=== PATIENT | female | born 1975 | race Two or more races ===

== ENCOUNTER 2020-02-07 10:10 | Outpatient (CLI) | payer BC | END 2020-02-07 23:59 | disposition home or self-care (01) | LOC: LAB 10:10 | PROVIDERS: ATTEND Obstetrics & Gynecology | DX: Z01.812 Encounter for preprocedural laboratory examination (principal); Z11.59 Encounter for screening for other viral diseases ==

== ENCOUNTER 2020-02-11 05:59 | Inpatient (IN) | payer BC ==
[~2020-02-11] VITALS: Ht 160 cm; Wt 84.4 kg
[2020-02-11] VITALS (11 sets, daily range): BP systolic 112–155; BP diastolic 64–81
--- NOTE | 2020-02-11 06:45 | NUR ---
PT ARRIVED TO UNIT FROM HOME FOR TOTAL ABDOMINAL HYSTERECTOMY. PT IS A/OX4. ON ROOM AIR, BREATHING EVEN AND UNLABORED. DENIES SOB, IN NO ACUTE DISTRESS. BELONGINGS LIST COMPLETED AND FILED IN THE CHART. BELONGINGS LEFT IN DRAWER AT BEDSIDE. CONSENTS SIGNED AND FILED IN THE CHART. ORIENTED PT TO ROOM AND CALL LIGHT. IV STARTED TO LAC #20.
[2020-02-11] MEDS ORDERED: ANESTHESIA TRAY IN PYXIS 1 EA TRAY MC ONE (07:02)
--- NOTE | 2020-02-11 07:06 | NUR ---
PT NOTED LEFT BREAST PAIN SINCE YESTERDAY. FEELS WARM AND TENDER TO TOUCH. SURGICAL TEAM TO NOTIFY MD. PT WENT DOWN FOR SURGERY WITH STAFF.
[2020-02-11 07:16] LABS: HEMOGLOBIN 11.3 g/dL (11.5-14.8)
[2020-02-11] MEDS ORDERED: MIDAZOLAM HCL 2 MG/2ML VIAL ONE (07:27)
[2020-02-11] MEDS ORDERED: FENTANYL PF 250MCG/5ML AMPUL ONE (07:27)
[2020-02-11] MEDS ORDERED: ROCURONIUM BROMIDE 50 MG/5 ML ONE (07:28)
--- NOTE | 2020-02-11 07:30 | NUR ---
MS/RN NOTES RECEIVED REPORT FROM [facility] NURSE. PT CURRENTLY AT OR.
[2020-02-11] MEDS ORDERED: CELLULOSE,OXIDIZED 1 EA PACK MC ONE (08:51)
[2020-02-11] MEDS ORDERED: BUPIVACAINE 0.25% 75 MG/30 ML VIAL ONE (08:51)
[2020-02-11] MEDS ORDERED: HYDROMORPHONE INJ 2 MG/ML DISP.SYRIN ONE (09:34)
--- NOTE | 2020-02-11 10:30 | NUR ---
MS/RN ADMITTING NOTES Received patient in bed from OR for total abdominal hysterectomy and right ovarian cystectomy lysis of adhesion, A&O x 4. No complaints of pain/discomfort at this time, last pain medication noted at 0945. Breathing even and non-labored on 2L oxygen via NC. No respiratory or cardiac distress noted. IV access noted on L AC #18, patent and intact, and flushing well. Patient complains of L breast pain, mass felt upon palpation and warm to touch. Dr. Meza ordered consultation with Dr. Micah Seaman, notified Dr. Seaman already. Photo taken of abdominal dressing, which is clean, dry, and intact. Sensation from all peripheral extremities intact. Botello in place, draining yellow urine well. Sensation from all peripheral extremities intact. Fall precautions maintained. Post-op orders carried out. Will continue to monitor patient for any changes in condition.
[2020-02-11] MEDS ORDERED: ONDANSETRON HCL/PF 4 MG/2 ML VIAL IV PRN (11:00)
--- NOTE | 2020-02-11 11:00 | NUR ---
MS/RN NOTES Patient refuses supplemental oxygen, says "it bothers me." Saturating well on room air, 100%.
--- NOTE | 2020-02-11 12:00 | NUR ---
MS/RN NOTES CALLED MED RECON NURSE TO FOLLOW UP MED RECON, STATES "I'LL BE RIGHT THERE TO DO IT."
[2020-02-11] MEDS: MORPHINE SULFATE INJ 4 MG/ML DISP.SYRIN IV PRN ×3 (12:42→20:48)
--- NOTE | 2020-02-11 12:42 | NUR ---
MS/RN NOTES Administered and scanned Morphine 5 mg via IVP, but it didn't register because pharmacy edited order. Waste was witnessed by RENNY Peralta. Will continue to monitor patient for any changes in condition.
--- NOTE | 2020-02-11 12:52 | NUR ---
MS/RN NOTES Per pharmacy, cefazolin and cefotetan cannot be administered together since it's both cephalosporins. Called Dr. Meza for clarification of order and states "keep ancef, but change it to 1gm to 2 grams IVPB q 12 hrs x 2 doses". Order carried out and notified pharmacy.
[2020-02-11] MEDS ORDERED: MORPHINE SULFATE INJ 4 MG/ML DISP.SYRIN IV PRN (13:00)
[2020-02-11] MEDS: IV D5 LR 1,000 ML IV PRN (13:47)
[2020-02-11] MEDS: CEFAZOLIN 2 GM in IV D5W 100 ML IV SCH ×2 (14:52→22:05)
[2020-02-11] MEDS ORDERED: ANCEF 1 GM/50 ML D5W IV SCH ×2 (15:00)
--- NOTE | 2020-02-11 18:58 | NUR ---
MS/RN CLOSING NOTES Patient resting in bed, A&O x 4. No complaints of pain/discomfort at this time, last pain medication noted at 1638. Breathing even and non-labored on RA. No respiratory or cardiac distress noted. IV access noted on L AC #18, patent and intact, and running D5LR @125 cc/hr. Abdominal dressing stayed clean, dry, and intact. Sensation from all peripheral extremities intact. Botello in place, draining yellow urine well. Sensation from all peripheral extremities intact. Fall precautions maintained. Will endorse to plant operator nurse.
[2020-02-11 19:25] LABS: HEMOGLOBIN 9.9 g/dL (11.5-14.8)
--- NOTE | 2020-02-11 19:50 | NUR ---
MS RN OPENING NOTES PATIENT RECEIVED RESTING IN BED COMFORTABLY; PATIENT A/OX2-3; BREATHING EVEN AND UNLABORED; NO SOB NOTED; TOLERATING ROOM AIR WELL; PER AM SHIFT, PATIENT COMPLAINING OF LEFT BREAST PAIN; DR. KENNEDY ASSESSED PATIENT AND INPUT ORDERS FOR FURTHER EVAL; L AC #18 INTACT AND PATENT, FLUSHING WELL; NO S/S OF REDNESS OR INFILTRATION NOTED; PATIENT TOLERATING IVF WELL; MEYER IN PLACE, PER AM SHIFT, D/C IN AM; WILL INFORM DAY SHIFT; SAFETY PRECAUTIONS IMPLEMENTED; BED LOCKED IN LOW POSITION; SIDE RAILSX2; CALL LIGHT WITHIN REACH; WILL CONT TO MONITOR
--- NOTE | 2020-02-11 20:52 | NUR ---
MS RN NOTES US OF LEFT BREAST COMPLETED, AWAITING RESULTS; PATIENT COMPLAINT OF 8/10 ABDOMINAL PAIN; VITALS STABLE; MORPHINE ADMINISTERED PER MD ORDER
[2020-02-12] MEDS: IV D5 LR 1,000 ML IV PRN (02:37)
[2020-02-12] MEDS: MORPHINE SULFATE INJ 4 MG/ML DISP.SYRIN IV PRN ×2 (05:14→21:11)
--- NOTE | 2020-02-12 05:18 | NUR ---
MS RN NOTES PATIENT COMPLAINING OF 9/10 ABDOMINAL PAIN; PATIENT STATED SHE KNOWS MORPHINE IS EVERY 3HOURS NEEDED; PATIENT VERBALIZED SHE DID NOT FEEL THE PAIN SINCE SHE HAS BEEN SLEEPING THROUGHOUT THE NIGHT; VITALS STABLE; PATIENT ABLE TO MAKE NEEDS KNOWN; MORPHINE ADMINISTERED PER MD ORDER; WILL CONT TO MONITOR
--- NOTE | 2020-02-12 06:39 | NUR ---
MS RN CLOSING NOTES PATIENT RESTING IN BED COMFORTABLY; A/OX2-3; BREATHING EVEN AND UNLABORED; TOLERATING ROOM AIR WELL; NO SOB NOTED; PATIENT ABLE TO MAKE NEEDS KNOWN; L AC #18 INTACT AND PATENT, FLUSHING WELL; NO S/S OF REDNESS OR INFILTRATION NOTED; INFUSING D5LR @ 125ML/HR; TOLERATING IVF WELL; MEYER IN PLACE, OUTPUT OF 1525CC; ALL NEEDS RENDERED; SAFETY PRECAUTIONS IMPLEMENTED; BED LOCKED IN LOW POSITION; SIDE RAILSX2; CALL LIGHT WITHIN REACH; WILL ENDORSE BAKARI TO ONCOMING SHIFT
--- NOTE | 2020-02-12 07:54 | NUR ---
MS/RN Opening note Patient received from nightclub manager. Sleeping soundly, appears comfortable. Safety measures in place, call light within reach, bed in low setting, side rails X3 in upright position. Will continue to monitor and ensure safety.
[2020-02-12 08:00] VITALS: BP 125/74
[2020-02-12 08:03] VITALS: BP 125/74
[2020-02-12 08:16] LABS: BASOPHILS % (AUTO) 0.2 % (0.0-2.0); EOSINOPHILS % (AUTO) 2.5 % (0.0-6.0); HEMATOCRIT 29 % (33-45); HEMOGLOBIN 9.4 g/dL (11.5-14.8); LYMPHOCYTES # (AUTO) 1.7 /CMM (0.8-4.8); LYMPHOCYTES % (AUTO) 14.9 % (20.0-44.0); MEAN CORPUSCULAR HGB CONC 33 g/dl (31.0-36.0); MEAN CORPUSCULAR VOLUME 91 fL (82-100); MONOCYTES # (AUTO) 0.6 /CMM (0.1-1.30); MONOCYTES % (AUTO) 5.3 % (2.0-12.0); NEUTROPHILS # (AUTO) 8.9 /CMM (1.8-8.9); NEUTROPHILS % (AUTO) 77.1 % (43.0-81.0); PLATELET COUNT (AUTO) 349 /CMM (150-450); RED BLOOD CELL COUNT(AUTO) 3.19 MIL/uL (4.0-5.2); WHITE BLOOD COUNT (AUTO) 11.6 K/uL (4.3-11.0)
--- NOTE | 2020-02-12 09:00 | NUR ---
MS/RN Botello Botello catheter removed, will monitor to ensure that patient is able to void without any pain.
--- NOTE | 2020-02-12 10:30 | NUR ---
MS/RN S/B Dr Meza Call received from Dr Meza - diet to be advanced to regular and fluids discontinued once tolerating diet without nausea or vomiting. Encouraged to ambulate to help prevent DVT. Pain medications available if needed, patient asked pain level, stated 2/10 at this time and did not want anything for pain.
--- NOTE | 2020-02-12 10:38 | NUR ---
MS/RN Voiding Patient in bathroom, able to void post vivar removal.
--- NOTE | 2020-02-12 11:00 | NUR ---
MS/RN S/B Dr Seaman Seen by Dr Seaman - ultrasound of left breast to be repeated due to poor quality of images from study yesterday. Ice pack applied to left breast to help reduced cellulitis.
[2020-02-12] MEDS: ACETAMINOPHEN W/ CODEINE#3 1 EA TABLET PO PRN ×2 (11:15→16:12)
--- NOTE | 2020-02-12 14:26 | NUR ---
MS/RN S/B Dr Meza Seen by Dr Meza - discharge held until tomorrow to enable ulrasound of left breast to take place and provide time for treatment plan to be formalized. Prescriptions wriiten, copied and placed in chart.
[2020-02-12 16:00] VITALS: BP 117/73
[2020-02-12 16:30] VITALS: BP 117/73
[2020-02-12] MEDS ORDERED: CEFAZOLIN 2 GM in IV D5W 100 ML IV SCH (17:00)
[2020-02-12] MEDS: ANCEF 1 GM/50 ML D5W IV SCH ×2 (17:21)
--- NOTE | 2020-02-12 18:25 | NUR ---
MS/RN End note Patient remains in stable condition, pain well controlled with tylenol #3, last time administered 1610. Dressing to abdominal incision clean and dry, no oozing noted. IVAB hung as ordered at 1800, no adverse reaction noted. Ice packs provided to use for lower abdomen and left breast for cellulitis. Radiology called to follow up with time as to when breast ultrasound would be carried out. Spoke with Barbara, stated that study was taken yesterday. Informed that study was to be repeated due to previous study being unsatisfactory. Will endorse to shift engineer.
--- NOTE | 2020-02-12 19:37 | NUR ---
MS RN OPENING NOTES RECEIVED PATIENT RESTING IN BED COMFORTABLY; A/OX4; BREATHING EVEN AND UNLABORED; TOLERATING ROOM AIR WELL; NO SOB NOTED; L AC #18 H/L INTACT AND PATENT, FLUSHING WELL; NO S/S OF REDNESS OR INFILTRATION NOTED; PATIENT ABLE TO MAKE NEEDS KNOWN; SAFETY PRECAUTIONS IMPLEMENTED; BED LOCKED IN LOW POSITION; SIDE RAILSX2; CALL LIGHT WITHIN EASY REACH; WILL CONT PLAN OF CARE AND CONT TO MONITOR
[2020-02-12 20:00] VITALS: BP 125/75
[2020-02-12 20:19] VITALS: BP 125/75
--- NOTE | 2020-02-12 21:16 | NUR ---
MS RN NOTES PATIENT COMPLAINT OF 8/10 ABDOMINAL PAIN; PATIENT REQUESTING MORPHINE; A/OX4, BREATHING EVEN AND UNLABORED; PATIENT ABLE TO MAKE NEEDS KNOWN; PATIENT AWARE SHE IS TRYING NOT TO DEPEND SO MUCH ON PAIN MEDICATION; MORPHINE ADMINISTERED PER MD ZAVALA; WILL CONT TO MONITOR
[2020-02-13] MEDS: ANCEF 1 GM/50 ML D5W IV SCH ×4 (00:01→08:12)
--- NOTE | 2020-02-13 06:50 | NUR ---
MS RN CLOSING NOTES PATIENT RESTING IN BED COMFORTABLY; A/OX4; BREATHING EVEN AND UNLABORED; NO SOB NOTED; PATIENT ABLE TO MAKE NEEDS KNOWN; ALL NEEDS RENDERED; SAFETY PRECAUTIONS IMPLEMENTED; BED LOCKED IN LOW POSITION; SIDE RAILX2; CALL LIGHT WITHIN REACH; WILL ENDORSE BAKARI TO ONCOMING SHIFT
--- NOTE | 2020-02-13 07:21 | NUR ---
MS/RN Opening note Patient received from hourly shift. Sleeping soundly, appears in no discomfort or distress at this time. Safety measures in place, bed in low setting, side rails X3 in upright position. Call light within reach, will continue to monitor and ensure safety.
--- NOTE | 2020-02-13 10:30 | NUR ---
MS/RN Dr Meza Telephone call received from Dr Meza, patient to be discharged to home today with follow up in office on February 20 at 11a.
--- NOTE | 2020-02-13 11:15 | NUR ---
MS/RN S/B Dr Seaman Seen by MD - patient to follow up with Dr Seaman in office once mamogram completed for further evaluation of left breat pain.
[2020-02-13] MEDS: ACETAMINOPHEN W/ CODEINE#3 1 EA TABLET PO PRN (12:30)
--- NOTE | 2020-02-13 13:30 | NUR ---
MS/heeler Patient discharged to home in stable condition. All personal belongings with patient and signed for on belongings list. Heplock and name bands removed. Educated patient as to the importance of following up with Dr Meza, appointment time already arranged for February 20 at 11a, address already provided to patient. Staple remover and steri-strips given to patient to take to this appointnemt as of the order of Dr Meza. Also need to follow up with Dr Seaman after mamogram for further evaluation of left breast pain and cellulitis. Provided with both office address and telephone number. Made aware of possible signs of infection including fever, increase in pain and swelling and redness around incision site and told to report these to MD. Incision care instructions given, provided with extra dressings. Instructed patient to not lift anything heavy until after follow up appointment. Medical record copied and patient provided with this and copy of signed exit care. All questions and concerns addressed, Escorted to main lobby via wheelchair with LITERARY WRITER. waiting and provided transport home.
== END 2020-02-13 13:40 | disposition home or self-care (01) | DRG 743 ==
LOC: DS 05:59 → MED 06:04
PROVIDERS: ADMIT Obstetrics & Gynecology; ATTEND Obstetrics & Gynecology
PROC: 0UT90ZZ Resection of Uterus, Open Approach (ICD-10-PCS; principal; 2020-02-11)
PROC: 0UB00ZZ Excision of Right Ovary, Open Approach (ICD-10-PCS; principal; 2020-02-11)
DX: D25.9 Leiomyoma of uterus, unspecified (principal); D64.9 Anemia, unspecified; E66.9 Obesity, unspecified; K66.0 Peritoneal adhesions (postprocedural) (postinfection); F17.210 Nicotine dependence, cigarettes, uncomplicated; N83.201 Unspecified ovarian cyst, right side; N63.20 Unspecified lump in the left breast, unspecified quadrant; N92.1 Excessive and frequent menstruation with irregular cycle; N64.4 Mastodynia; Z68.32 Body mass index [BMI] 32.0-32.9, adult
CPT/HCPCS: 36415; 76642-LT-TC; 84702-TC; 84703-TC; 85025-TC; 85027-TC; 86850-TC; 87081-TC; 88305-TC; 88307-TC; A6209; G0378; J0690; J1170; J2250; J2270; J3010; J3490; J7050; J7060